=== PATIENT | male | born 1940 | race Caucasian/White ===

== ENCOUNTER 2017-03-26 23:48 | Emergency (ER) | payer MEDICARE, OTHER ==
[~2017-03-26] VITALS: Ht 170.2 cm; Wt 98.0 kg
[2017-03-26 23:56] VITALS: BP 189/86; PULSE 81; RESP 18; O2SAT 96
[2017-03-27] VITALS: BP 189/86; PULSE 77; RESP 18; O2SAT 96
[2017-03-27] MEDS ORDERED: METF1000 PO (00:07)
[2017-03-27] MEDS ORDERED: LIPI20TA PO (00:07)
--- NOTE | 2017-03-27 01:12 | RADRPT ---
EXAM DATE/TIME: 03/27/2017 00:40 [facility] COMPARISON: No previous studies available for comparison. INDICATIONS : Trauma; fall. RADIATION DOSE: 56.35 CTDIvol (mGy) MEDICAL HISTORY : frequent falls SURGICAL HISTORY : None. ENCOUNTER: Initial ACUITY: 1 day PAIN SCALE: 4/10 LOCATION: cranial TECHNIQUE: Multiple contiguous axial images were obtained of the head. Using automated exposure control and adj ustment of the mA and/or kV according to patient size, radiation dose was kept as low as reasonably a chievable to obtain optimal diagnostic quality images. DICOM format image data is available electro nically for review and comparison. FINDINGS: CEREBRUM: The ventricles are normal for age. No evidence of midline shift, mass lesion, hemorrhage or acute in farction. No extra-axial fluid collections are seen. POSTERIOR FOSSA: The cerebellum and brainstem are intact. The 4th ventricle is midline. The cerebellopontine angle i s unremarkable. EXTRACRANIAL: The visualized portion of the orbits is intact. SKULL: The calvaria is intact. No evidence of skull fracture. CONCLUSION: 1. No acute intracranial abnormalities. Newton Diamond MD on March 27, 2017 at 1:08 Board Certified Radiologist. This report was verified electronically.
--- NOTE | 2017-03-27 01:15 | RADRPT ---
EXAM DATE/TIME: 03/27/2017 00:40 [facility] COMPARISON: No previous studies available for comparison. INDICATIONS : Trauma; fall. RADIATION DOSE: 26.35 CTDIvol (mGy) MEDICAL HISTORY : frequent falls SURGICAL HISTORY : None. ENCOUNTER: Initial ACUITY: 1 day PAIN SCORE: 5/10 LOCATION: Bilateral facial TECHNIQUE: Volumetric scanning of the facial bones was performed. Using automated exposure control and adjustme nt of the mA and/or kV according to patient size, radiation dose was kept as low as reasonably achiev able to obtain optimal diagnostic quality images. DICOM format image data is available electronicall y for review and comparison. FINDINGS: ORBITS: The orbital and infraorbital osseous structures are intact. The retroconal structures have a normal configuration. No radiopaque foreign bodies are seen. NASAL BONE: The nasal bone and maxillary spine are intact ZYGOMATIC ARCHES: Symmetric without evidence of fracture. SINUSES: The maxillary, ethmoid and frontal sinuses are intact. No air-fluid levels seen. NASAL CAVITY: The nasal septum is intact and midline. The lacrimal ducts are intact. SOFT TISSUES: No radiopaque foreign bodies seen. Frontal scalp and right periorbital soft tissue swelling. INTRACRANIAL: No intracranial air seen. CRIBIFORM PLATE: Grossly intact. CONCLUSION: 1. No acute bony abnormality. Right frontal scalp and periorbital soft tissue swelling. Newton Diamond MD on March 27, 2017 at 1:11 Board Certified Radiologist. This report was verified electronically.
--- NOTE | 2017-03-27 01:18 | RADRPT ---
EXAM DATE/TIME: 03/27/2017 00:40 [facility] COMPARISON: No previous studies available for comparison. INDICATIONS : Trauma; fall RADIATION DOSE: 25.98 CTDIvol (mGy) MEDICAL HISTORY : frequent falls SURGICAL HISTORY : None. ENCOUNTER: Initial ACUITY: 1 day PAIN SCALE: 5/10 LOCATION: Bilateral neck TECHNIQUE: Volumetric scanning of the cervical spine was performed. Multiplanar reconstructions in the sagittal, coronal and oblique axial planes were performed. Using automated exposure control and adjustment o f the mA and/or kV according to patient size, radiation dose was kept as low as reasonably achievable to obtain optimal diagnostic quality images. DICOM format image data is available electronically f or review and comparison. FINDINGS: No acute fracture or subluxation. There is diffuse idiopathic skeletal hyperostosis with contiguous a nterior osteophytes extending from C2-C5. 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 CONCLUSION: 1. No acute findings. Degenerative change as above. Newton Diamond MD on March 27, 2017 at 1:13 Board Certified Radiologist. This report was verified electronically.
[2017-03-27] MEDS ORDERED: KETOROLAC TROMETHAMINE 30 MG/ML (IVP) VIAL IV PUSH ONE (01:45)
--- NOTE | 2017-03-27 01:56 | PD ---
HPI Chief Complaint: Fall Time Seen by Provider: 00:24 Travel History International Travel<30 days: No Contact w/Intl Traveler<30days: No Traveled to known affect area: No History of Present Illness HPI Patient 76-year-old male who fell tonight getting up out of bed he hit his face and nose on the floor and is coming in complaining of a nosebleed that he was exerting very nervous of bleeding nose and the injury to the eye. He is not on anticoagulants. Patient is not on blood thinners he has no visual changes and his main complaint was that he had a nosebleed after the fall he is falling more frequently lately reports and he has peripheral neuropathy diabetic and thinks that is the cause PFSH Past Medical History Diabetes: Yes Patient Takes Glucophage: No Past Surgical History Other Surgery: Yes (hernia repair) Social History Alcohol Use: No Tobacco Use: No Substance Use: No Allergies-Medications (Allergen,Severity, Reaction): Coded Allergies: No Known Allergies (Unverified , 03/27/17) Reported Meds & Prescriptions Reported Meds & Active Scripts Active Reported Lipitor (Atorvastatin Calcium) 20 Mg Tab 20 Mg PO HS Metformin (Metformin HCl) 1,000 Mg Tab 1,000 Mg PO BIDPC Review of Systems Except as stated in HPI: all other systems reviewed are Neg Physical Exam Narrative GENERAL: FACIAL BRUISE TO RIGHT UPPER LID EYE SKIN: Warm and dry. HEAD: traumatic BRUISE RIGHT UPPER LID AND HEALING YELLOWING BRUISE TO LEFT MAXILLARY INFRAORBITSL AREA. Normocephalic. EYES: Pupils equal and round. No scleral icterus. No injection or drainage. ENT: No nasal bleeding or discharge. Mucous membranes pink and moist. DRIED BLOOD FROM RIGHT NARE NO ACTIVE BLEEDING SORCE LOCATED ON NARE INSPECTION WITH NASAL LIGHT AND SPECULUM NECK: Trachea midline. No JVD. CARDIOVASCULAR: Regular rate and rhythm. RESPIRATORY: No accessory muscle use. Clear to auscultation. Breath sounds equal bilaterally. GASTROINTESTINAL: Abdomen soft, non-tender, nondistended. Hepatic and splenic margins not palpable. MUSCULOSKELETAL: Extremities without clubbing, cyanosis, or edema. No obvious deformities. NEUROLOGICAL: Awake and alert. No obvious cranial nerve deficits. Motor grossly within normal limits. Five out of 5 muscle strength in the arms and legs. Normal speech. PSYCHIATRIC: Appropriate mood and affect; insight and judgment normal. Data Data Last Documented VS Vital Signs Date Time Temp Pulse Resp B/P (MAP) Pulse Ox O2 Delivery O2 Flow Rate FiO2 03/27/17 02:26 03/27/17 02:26 75 18 78 18 70 18 03/27/17 00:00 96 Room Air Orders Orders Ct Brain W/O Iv Contrast(Rout) (03/27/17 ) Ct Facial Bones W/O Iv Cont (03/27/17 ) Ct Cerv Spine W/O Contrast (03/27/17 ) Ketorolac Inj (Toradol Inj) (03/27/17 01:45) Orthostatic Vital Signs (03/27/17 01:58) Ed Discharge Order (03/27/17 02:31) MDM Medical Decision Making Medical Screen Exam Complete: Yes Emergency Medical Condition: Yes Differential Diagnosis CT HEAD AND FACIAL BONES DDX INCLUDES NASAL FRACTURE VS CONTUSION VS HEMORRHAGE FROM POSTERIOR ARTERIAL CIRCULATION NOSE VS WORSENING PERIPHERAL NEUROPATHY AND FALLS FROM DM , Narrative Course CT HEAD AND FACIAL BONES SHOW NO INJURY NO NASAL FRACTURE AND NO INTRACRANILA INJURY, LABS REVIEWED AND HE IS OBSERVED FOR REBLEED IN ER FOR 3 HRS WHILE AWAITING LABS AND CT STUDIES Diagnosis Primary Impression: Facial contusion Qualified Codes: S00.83XA - Contusion of other part of head, initial encounter Additional Impression: Right-sided epistaxis Patient Instructions: Contusion in Adults (ED), Facial Contusion (ED), General Instructions Disposition: 01 DISCHARGE HOME Condition: Stoney Salmeron MD Mar 27, 2017 01:56
[2017-03-27 02:26] VITALS: BP_SYST 180; BP_SYST 182; BP_SYST 186; BP_DIAS 78; BP_DIAS 84; BP_DIAS 85; RESP 18
== END 2017-03-27 03:11 | disposition home or self-care (01) ==
LOC: NEPE 23:48
DX: S00.83XA Contusion of other part of head, initial encounter (principal); R04.0 Epistaxis; E11.9 Type 2 diabetes mellitus without complications; W06.XXXA Fall from bed, initial encounter; Y93.84 Activity, sleeping; Y92.003 Bedroom of unspecified non-institutional (private) residence as the place of occurrence of the external cause
CPT/HCPCS: 70450; 70486; 72125; 96374; 99284; J1885